=== PATIENT | male | born 1965 ===

== ENCOUNTER 2024-01-21 11:15 | Inpatient (IN) | payer OTHER ==
[~2024-01-21] VITALS: Ht 157.4 cm; Wt 53.1 kg
[2024-01-21 11:18] VITALS: BP 121/77
[2024-01-21] MEDS ORDERED: IOHEXOL 350 MG/ML 100 ML VIAL IV ONE (12:05)
[2024-01-21] MEDS ORDERED: SODIUM CHLORIDE 0.9% 100 ML BAG IV ONE (12:05)
[2024-01-21 12:23] LABS: BASO % 0.2 % (0.0-1.0); EOS # 0.1 10*3/uL (0.0-0.4); HEMATOCRIT 35.9 % (42.0-52.0); LYMPH % 50.6 % (27.0-41.0); MEAN CELL VOLUME 81.6 fl (80.0-94.0); MEAN CORPUSCULAR HGB 25.7 pg (27.0-31.0); MEAN CORPUSCULAR HGB CONC 31.5 g/dl (33.0-37.0); MEAN PLATELET VOLUME 9.9 fl (9.6-12.3); MONO # 0.6 10*3/uL (0.1-1.0); MONO % 14.6 % (3.0-9.0); NEUT # 1.3 10*3/uL (2.3-7.9); NEUT % 32.6 % (47.0-73.0); PLATELET COUNT AUTOMATED 145 10*3/uL (130-400); RED CELL DISTRI WIDTH 14.3 % (0-14.5)
[2024-01-21 12:46] LABS: ALKALINE PHOSPHATASE 112 U/L (46-116); BUN 16 mg/dl (9-23); CHLORIDE 108 mmol/L (98-107); SGPT/ALT 12 U/L (5-49); TOTAL PROTEIN 6.7 gm/dL (6.0-8.0)
[2024-01-21 12:54] LABS: BILIRUBIN Negative (Negative); BLOOD Negative (Negative); CLARITY Clear (Clear); COLOR Yellow (Yellow); GLUCOSE Negative (Negative); KETONE Negative (Negative); LEUKO ESTERASE Negative (Negative); NITRITE Negative (Negative); UROBILINOGEN 0.2 E.U./dl (0.0-1.0)
[2024-01-21 13:04] LABS: URINE AMPHETAMINES Negative (1000ng/ml); URINE BARBITURATES Negative (200ng/ml); URINE BENZODIAZEPINES Negative (200ng/ml); URINE CANNABINOIDS (THC) Negative (50ng/ml); URINE COCAINE Negative (300ng/ml); URINE METHADONE Negative (300ng/ml); URINE OPIATES Negative (300ng/ml); URINE PHENCYCLIDINE Negative (25ng/ml)
[2024-01-21 13:08] LABS: EPITHELIAL CELLS 0-2; HYALINE CAST 0-2; WBC 0-2 wbc/hpf (0-5)
[2024-01-21] MEDS ORDERED: BISACODYL 5 MG TAB PO PRN (14:50)
[2024-01-21] MEDS ORDERED: Magnesium Hydroxide 30 ML UDC PO PRN (14:50)
[2024-01-21] MEDS ORDERED: BISACODYL 10 MG SUPP R PRN (14:50)
[2024-01-21] MEDS ORDERED: MORPHINE Sulfate 2 MG/ML SYR IV PRN (14:50)
[2024-01-21] MEDS ORDERED: Ondansetron Hydrochloride 4 MG/2 ML VIAL IV PRN (14:50)
[2024-01-21 16:25] VITALS: BP 118/82
[2024-01-21 18:53] VITALS: BP 125/89
[2024-01-21 19:43] VITALS: BP 119/67
[2024-01-21 23:41] VITALS: BP 132/68
[2024-01-22] MEDS ORDERED: Pantoprazole Sodium 40 MG VIAL IV SCH (06:00)
[2024-01-22 06:22] LABS: BASO % 0.2 % (0.0-1.0); EOS # 0.2 10*3/uL (0.0-0.4); EOS % 3.2 % (1.0-4.0); HEMATOCRIT 36.3 % (42.0-52.0); LYMPH # 2.3 10*3/uL (1.3-4.4); LYMPH % 48.6 % (27.0-41.0); MEAN CELL VOLUME 80.7 fl (80.0-94.0); MEAN CORPUSCULAR HGB CONC 32.2 g/dl (33.0-37.0); MEAN PLATELET VOLUME 10.1 fl (9.6-12.3); MONO # 0.6 10*3/uL (0.1-1.0); MONO % 12.5 % (3.0-9.0); NEUT # 1.6 10*3/uL (2.3-7.9); NEUT % 35.3 % (47.0-73.0); PLATELET COUNT AUTOMATED 141 10*3/uL (130-400); RED CELL DISTRI WIDTH 14.6 % (0-14.5); WHITE BLOOD COUNT 4.6 10*3/uL (4.8-10.8)
[2024-01-22 06:28] LABS: BUN 12 mg/dl (9-23); CHLORIDE 111 mmol/L (98-107); CHOLESTEROL 82 mg/dL (<200); LDL CHOLESTEROL 47 mg/dL (9-159); POTASSIUM 4.1 mmol/L (3.4-5.1); TRIGLYCERIDES 59 mg/dl (<150)
[2024-01-22 06:35] VITALS: BP 129/71
[2024-01-22 07:07] LABS: VITAMIN D, 25-HYDROXY 25.5 ng/mL (30-100)
[2024-01-22 08:00] VITALS: BP 111/61; BP 116/84
[2024-01-22] MEDS ORDERED: ASPIRIN ENTERIC COATED 81 MG TAB PO SCH (10:00)
[2024-01-22] MEDS ORDERED: Enoxaparin Sodium 40 MG/0.4 ML SYR SC SCH (10:00)
[2024-01-22] MEDS ORDERED: ATORVASTATIN CALCIUM 80 MG TAB PO SCH (10:00)
[2024-01-22 12:30] VITALS: BP 125/73
[2024-01-22 14:38] VITALS: BP 125/73
[2024-01-22 15:53] VITALS: BP 119/73
[2024-01-22 20:00] VITALS: BP 127/59
[2024-01-23] VITALS: BP 137/69
[2024-01-23 06:44] LABS: BASO % 0.6 % (0.0-1.0); EOS # 0.2 10*3/uL (0.0-0.4); EOS % 3.5 % (1.0-4.0); HEMATOCRIT 38.4 % (42.0-52.0); LYMPH # 2.5 10*3/uL (1.3-4.4); LYMPH % 48.2 % (27.0-41.0); MEAN CELL VOLUME 80.5 fl (80.0-94.0); MEAN CORPUSCULAR HGB 25.8 pg (27.0-31.0); MEAN PLATELET VOLUME 9.8 fl (9.6-12.3); MONO # 0.5 10*3/uL (0.1-1.0); NEUT % 37.7 % (47.0-73.0); PLATELET COUNT AUTOMATED 141 10*3/uL (130-400); RED BLOOD COUNT 4.77 10*6/uL (4.50-5.90); RED CELL DISTRI WIDTH 14.2 % (0-14.5); WHITE BLOOD COUNT 5.2 10*3/uL (4.8-10.8)
[2024-01-23 07:13] LABS: BUN 10 mg/dl (9-23); CHLORIDE 109 mmol/L (98-107)
[2024-01-23 07:58] VITALS: BP 141/81
[2024-01-23] MEDS ORDERED: ERGOCALCIFEROL 50,000 IU CAP (1.25 MG) PO ONE (08:10)
[2024-01-23 11:51] VITALS: BP 139/73
[2024-01-23] MEDS ORDERED: ASPIRIN ADULT L81 M2 PO (15:21)
[2024-01-23] MEDS ORDERED: METHIMAZOLE10 MG PO (15:21)
[2024-01-23] MEDS ORDERED: ATORVASTATIN CA80 M1 PO (15:21)
[2024-01-23 15:24] VITALS: BP 159/65
== END 2024-01-23 16:15 | disposition home or self-care (01) | DRG 66 ==
LOC: ED 11:15 → 5E 14:24 → EDHOLD 14:24 → 5E 01-22 11:17
PROVIDERS: Physician Assistant Medical; Student in an Organized Health Care Education/Training Program; ADMIT Internal Medicine; ATTEND Internal Medicine
DX: I63.9 Cerebral infarction, unspecified (principal); D64.9 Anemia, unspecified; R47.01 Aphasia; D70.9 Neutropenia, unspecified; F17.210 Nicotine dependence, cigarettes, uncomplicated; E87.8 Other disorders of electrolyte and fluid balance, not elsewhere classified; R29.711 NIHSS score 11